=== PATIENT | female | born 1960 | race Two or more races ===

== ENCOUNTER 2017-02-20 10:03 | Emergency (ER) | payer SELFPAY ==
[~2017-02-20] VITALS: Ht 162.6 cm; Wt 57.2 kg
[2017-02-20] MEDS ORDERED: HYDROCODONE/APAP 5/325MG 1 EACH TABLET ONE ×2 (10:19→11:12)
[2017-02-20] MEDS ORDERED: HYDROCODONE/APAP 5/325MG 1 EACH TABLET PO ONE ×2 (10:30→11:30)
[2017-02-20 12:46] VITALS: BP 130/69
== END 2017-02-20 12:47 | disposition home or self-care (01) ==
LOC: ER 10:09
DX: M25.561 Pain in right knee (principal); W01.0XXA Fall on same level from slipping, tripping and stumbling without subsequent striking against object, initial encounter; Y92.512 Supermarket, store or market as the place of occurrence of the external cause; Y93.89 Activity, other specified; Y99.8 Other external cause status
CPT/HCPCS: 72040; 73110 ×2; 73562 ×2; 73700; 99284; A4606; Z7610

== ENCOUNTER 2025-08-05 05:56 | Inpatient (IN) | payer MEDICAID, OTHER ==
[2025-08-05] VITALS (33 sets, daily range): BP systolic 94–183; BP diastolic 54–94; TEMP 97–98.8; O2SAT 99–100
[~2025-08-05] VITALS: Ht 152.4 cm; Wt 44.0 kg
[2025-08-05] MEDS ORDERED: NALOXONE PREFILLED SYRINGE 2 MG/2 ML SYRINGE ONE (05:59)
[2025-08-05] MEDS ORDERED: ROCURONIUM BROMIDE 50 MG/5 ML IV ONE (06:00)
[2025-08-05] MEDS ORDERED: ETOMIDATE 2 MG/ML VIAL IV ONE (06:00)
[2025-08-05 06:27] LABS: PLATELET COUNT (AUTO) 121 K/uL (150-450); RED BLOOD CELL COUNT(AUTO) 2.73 MIL/uL (4.0-5.2); RED CELL DISTRIBUTION WIDTH 17.8 % (11.5-15.0); WHITE BLOOD COUNT (AUTO) 4.6 K/uL (4.3-11.0)
[2025-08-05 06:32] LABS: ABG BASE EXCESS 2.3 mmol/L (-2.0-3.0); ABG OXYGEN SATURATION 99.7 % (94.0-98.0); ABG PCO2 60.4 mmHg (32.0-45.0); ABG PH 7.304 (7.350-7.450); ABG PO2 483.5 mmHg (83.0-108.0); ABG TOTAL HEMOGLOBIN 8.8 G/dL (12.0-16.0); PEEP,BG 5 cm H2O; SET RATE, BG 28.0; SITE, ABG LEFT RADIAL; VT, ABG 300 mL
[2025-08-05 06:34] LABS: APPEARANCE,URINE CLEAR (CLEAR); BLOOD, URINE 1+ Ery/uL (NEGATIVE); LEUKOCYTE ESTERASE ,URINE NEGATIVE (NEGATIVE); NITRITE, URINE NEGATIVE (NEGATIVE); UGLUCOSE NEGATIVE (NEGATIVE)
[2025-08-05 06:37] LABS: CALCIUM, SERUM 7.8 mg/dL (8.5-10.1); CREATININE 4.4 mg/dL (0.6-1.3); SODIUM SERUM 137 mmol/L (136-145); UREA NITROGEN, BLOOD 36 mg/dL (7-18)
[2025-08-05 06:40] LABS: ADD URINE CULTURE NO; SQUAMOUS EPITHELIAL CELL,UR 0-2 /HPF (None Seen)
[2025-08-05 06:40] LABS: INR 1.62 (0.91-1.10)
[2025-08-05 06:43] LABS: ALCOHOL, BLOOD < 3 mg/dL (0-10); ASPARTATE AMINOTRANSFERASE 32 U/L (15-37); TOTAL PROTEIN, SERUM 6.8 g/dL (6.4-8.2)
[2025-08-05 06:45] LABS: SERUM AMMONIA 37 umol/L (11-32)
[2025-08-05 06:46] LABS: LACTIC ACID 1.0 mmol/L (0.4-2.0)
[2025-08-05 06:52] LABS: AMPHETAMINE, URINE NEGATIVE (NEGATIVE); BARBITURATE, URINE NEGATIVE (NEGATIVE); BENZODIAZEPINE, URINE NEGATIVE (NEGATIVE); CANNABINOID, URINE NEGATIVE (NEGATIVE); COCCAINE, URINE NEGATIVE (NEGATIVE); OPIATE, URINE NEGATIVE (NEGATIVE)
[2025-08-05] MEDS ORDERED: PIPERACI/TAZO 3.375GM/D5W 50ML PB IV ONE (08:02)
[2025-08-05] MEDS: PIPERACILLIN /TAZOBACTAM 3.375 G in IV D5W 50 ML IV ONE (08:25)
[2025-08-05] MEDS ORDERED: DOSING PER PHARMACY-CEFEPIME IVPB XX PRN (08:30)
[2025-08-05] MEDS ORDERED: IPRATROPIUM NEB FS 0.5 MG/2.5 ML AMPUL.NEB NEB PRN (08:30)
[2025-08-05] MEDS ORDERED: Z GUARD REMEDY 4 OZ OINT TP PRN (08:30)
[2025-08-05] MEDS ORDERED: ONDANSETRON HCL/PF 4 MG/2 ML VIAL IVP PRN (08:30)
[2025-08-05] MEDS ORDERED: ALBUTEROL FS 2.5 MG/3 ML VIAL.NEB NEB PRN (08:30)
[2025-08-05] MEDS ORDERED: DOSING PER PHARMACY-ZOSYN IV 1 EA EA XX PRN (08:30)
[2025-08-05] MEDS: PANTOPRAZOLE 40 MG VIAL IV SCH (09:52)
[2025-08-05] MEDS: IV D5 LR 1,000 ML IV PRN (10:03)
[2025-08-05] MEDS: PROPOFOL 100 ML IV PRN (10:03)
[2025-08-05] MEDS ORDERED: ATOR40TA PO (10:32)
[2025-08-05] MEDS ORDERED: FURO80TA3 PO (10:32)
[2025-08-05] MEDS ORDERED: ASPI-1420 PO (10:32)
[2025-08-05] MEDS ORDERED: LISI10TA29 PO (10:32)
[2025-08-05] MEDS ORDERED: HYDR-4076 PO (10:32)
[2025-08-05] MEDS ORDERED: METO25TA6 PO (10:32)
[2025-08-05] MEDS: PIPERACILLIN /TAZOBACTAM 3.375 G in IV D5W 100 ML IV SCH (13:12)
[2025-08-06] VITALS (55 sets, daily range): BP systolic 52–199; BP diastolic 41–88; TEMP 97.4–100.6; O2SAT 97–100
[2025-08-06] MEDS: NOREPINEPHRINE 8 MG in IV NS 0.9% 242 ML IV PRN (02:03)
[2025-08-06 05:20] LABS: ABG BASE EXCESS 7.0 mmol/L (-2.0-3.0); ABG OXYGEN SATURATION 98.3 % (94.0-98.0); ABG PCO2 28.4 mmHg (32.0-45.0); ABG PH 7.619 (7.350-7.450); ABG PO2 103.2 mmHg (83.0-108.0); ABG TOTAL HEMOGLOBIN 8.0 G/dL (12.0-16.0); FRACTIONATED INSPIRED OXYGEN 40.0 %; PEEP,BG 5 cm H2O; SET RATE, BG 24.0; SITE, ABG RIGHT RADIAL; VT, ABG 350 mL
[2025-08-06 05:49] LABS: CALCIUM, SERUM 7.8 mg/dL (8.5-10.1); CREATININE 3.0 mg/dL (0.6-1.3); PHOSPHORUS 1.1 mg/dL (2.5-4.9); SODIUM SERUM 142 mmol/L (136-145); UREA NITROGEN, BLOOD 20 mg/dL (7-18)
[2025-08-06 05:51] LABS: PLATELET COUNT (AUTO) 122 K/uL (150-450); RED BLOOD CELL COUNT(AUTO) 2.47 MIL/uL (4.0-5.2); RED CELL DISTRIBUTION WIDTH 16.4 % (11.5-15.0); WHITE BLOOD COUNT (AUTO) 8.1 K/uL (4.3-11.0)
[2025-08-06 05:53] LABS: LDL 31 mg/dL (0-99)
[2025-08-06] MEDS ORDERED: ASPIRIN EC 81 MG TABLET.DR PO SCH (09:30)
[2025-08-06] MEDS ORDERED: HEPARIN INFUSION/D5W 500 ML IV PRN (09:30)
[2025-08-06] MEDS: ATORVASTATIN 40 MG TABLET PO SCH (10:24)
[2025-08-06] MEDS: CLOPIDOGREL BISULFATE 75 MG TABLET PO SCH (10:24)
[2025-08-06] MEDS: POTASSIUM CHLORIDE 20 MEQ POWDER PACKET GT SCH (10:24)
[2025-08-06] MEDS: ASPIRIN 81 MG TAB.CHEW PO SCH (10:26)
[2025-08-06 11:39] LABS: INR 1.87 (0.91-1.10)
[2025-08-06] MEDS: NEPRO 1,000 ML BOTTLE GT PRN (14:44)
[2025-08-06] MEDS: Sodium Phosphate 15 MMOL in IV NS 0.9% 245 ML IV SCH (15:04)
[2025-08-06] MEDS: PIPERACILLIN /TAZOBACTAM 2.25 G in IV D5W 50 ML IV SCH (15:04)
[2025-08-07] VITALS (80 sets, daily range): BP systolic 85–146; BP diastolic 52–69; TEMP 97.5–98.4; O2SAT 99–100
[2025-08-07 05:38] LABS: PLATELET COUNT (AUTO) 134 K/uL (150-450); RED BLOOD CELL COUNT(AUTO) 2.60 MIL/uL (4.0-5.2); RED CELL DISTRIBUTION WIDTH 17.1 % (11.5-15.0); WHITE BLOOD COUNT (AUTO) 9.4 K/uL (4.3-11.0)
[2025-08-07 05:55] LABS: ASPARTATE AMINOTRANSFERASE 116.0 U/L (15-37); CALCIUM, SERUM 7.2 mg/dL (8.5-10.1); CREATININE 1.9 mg/dL (0.6-1.3); PHOSPHORUS 2.7 mg/dL (2.5-4.9); SODIUM SERUM 142.0 mmol/L (136-145); TOTAL PROTEIN, SERUM 5.7 g/dL (6.4-8.2); UREA NITROGEN, BLOOD 14.0 mg/dL (7-18)
[2025-08-07] MEDS ORDERED: POTASSIUM CHLORIDE 20 MEQ POWDER PACKET GT SCH (07:00)
[2025-08-07] MEDS: PANTOPRAZOLE 40 MG/PACK PACK GT SCH (09:26)
[2025-08-07 09:55] LABS: ABG BASE EXCESS 5.9 mmol/L (-2.0-3.0); ABG OXYGEN SATURATION 98.5 % (94.0-98.0); ABG PCO2 56.3 mmHg (32.0-45.0); ABG PH 7.373 (7.350-7.450); ABG PO2 115.8 mmHg (83.0-108.0); ABG TOTAL HEMOGLOBIN 8.3 G/dL (12.0-16.0); FRACTIONATED INSPIRED OXYGEN 40.0 %; PEEP,BG 5 cm H2O; SET RATE, BG 4.0; SITE, ABG RIGHT BRACHIAL; VT, ABG 300 mL
[2025-08-07] MEDS: POTASSIUM CHLORIDE 20 MEQ POWDER PACKET GT ONE (12:16)
[2025-08-08] VITALS (100 sets, daily range): BP systolic 66–174; BP diastolic 43–88; TEMP 97.5–98.2; O2SAT 95–100
[2025-08-08 04:34] LABS: PLATELET COUNT (AUTO) 120 K/uL (150-450); RED BLOOD CELL COUNT(AUTO) 2.38 MIL/uL (4.0-5.2); RED CELL DISTRIBUTION WIDTH 17.1 % (11.5-15.0); WHITE BLOOD COUNT (AUTO) 7.7 K/uL (4.3-11.0)
[2025-08-08 04:35] LABS: CALCIUM, SERUM 7.3 mg/dL (8.5-10.1); CREATININE 2.5 mg/dL (0.6-1.3); SODIUM SERUM 138.0 mmol/L (136-145); UREA NITROGEN, BLOOD 22.0 mg/dL (7-18)
[2025-08-08] MEDS: THERAHONEY GEL 1.5 OZ TUBE TP SCH (08:15)
[2025-08-08] MEDS: MIDODRINE HCL (5MG) 5 MG TABLET PO ONE ×2 (10:00→10:35)
[2025-08-08 10:16] LABS: ABG BASE EXCESS 4.9 mmol/L (-2.0-3.0); ABG OXYGEN SATURATION 97.2 % (94.0-98.0); ABG PCO2 53.1 mmHg (32.0-45.0); ABG PH 7.381 (7.350-7.450); ABG PO2 98.2 mmHg (83.0-108.0); ABG TOTAL HEMOGLOBIN 8.4 G/dL (12.0-16.0); FRACTIONATED INSPIRED OXYGEN 30.0 %; SET RATE, BG 4.0; VT, ABG 300 mL
[2025-08-08] MEDS: ALBUMIN 25% 25 GM in PREMIX 1 EA IV PRN (14:54)
[2025-08-09] VITALS (68 sets, daily range): BP systolic 97–194; BP diastolic 54–92; TEMP 96.7–101; O2SAT 97–100
[2025-08-09 03:27] LABS: PLATELET COUNT (AUTO) 120 K/uL (150-450); RED BLOOD CELL COUNT(AUTO) 2.27 MIL/uL (4.0-5.2); RED CELL DISTRIBUTION WIDTH 17.3 % (11.5-15.0); WHITE BLOOD COUNT (AUTO) 7.6 K/uL (4.3-11.0)
[2025-08-09 03:47] LABS: CALCIUM, SERUM 7.8 mg/dL (8.5-10.1); CREATININE 1.7 mg/dL (0.6-1.3); SODIUM SERUM 143.0 mmol/L (136-145); UREA NITROGEN, BLOOD 14.0 mg/dL (7-18)
[2025-08-09 03:53] LABS: PHOSPHORUS 1.8 mg/dL (2.5-4.9)
[2025-08-09 04:01] LABS: EOSINOPHILS % (MANUAL) 1 % (0-4); LYMPHOCYTES % (MANUAL) 6 % (16-48); MONOCYTES % (MANUAL) 4 % (0-11.0); NEUTROPHILS % (MANUAL) 89 (42-76); PLATELET ESTIMATE DECREASED
[2025-08-09 05:56] LABS: ABG BASE EXCESS 8.8 mmol/L (-2.0-3.0); ABG OXYGEN SATURATION 96.7 % (94.0-98.0); ABG PCO2 53.9 mmHg (32.0-45.0); ABG PH 7.422 (7.350-7.450); ABG PO2 87.7 mmHg (83.0-108.0); ABG TOTAL HEMOGLOBIN 8.0 G/dL (12.0-16.0); FRACTIONATED INSPIRED OXYGEN 30.0 %; SET RATE, BG 12.0; SITE, ABG RIGHT RADIAL; VT, ABG 300 mL
[2025-08-09 05:56] LABS: OCCULT BLOOD STOOL POSITIVE (NEGATIVE)
[2025-08-09] MEDS: PANTOPRAZOLE 40 MG VIAL IV SCH (08:07)
[2025-08-09] MEDS ORDERED: MIDODRINE HCL (5MG) 5 MG TABLET GT PRN (08:30)
[2025-08-09] MEDS: POTASSIUM CL. PREMIX PERIPHER. 50 ML IV SCH (11:13)
[2025-08-09] MEDS: MIDODRINE HCL (5MG) 5 MG TABLET GT SCH (13:47)
[2025-08-09] MEDS: Sodium Phosphate 15 MMOL in IV NS 0.9% 245 ML IV SCH (18:10)
[2025-08-09 18:53] LABS: PLATELET COUNT (AUTO) 157 K/uL (150-450); RED BLOOD CELL COUNT(AUTO) 2.76 MIL/uL (4.0-5.2); RED CELL DISTRIBUTION WIDTH 17.4 % (11.5-15.0); WHITE BLOOD COUNT (AUTO) 9.4 K/uL (4.3-11.0)
[2025-08-09 19:05] LABS: PHOSPHORUS 2.1 mg/dL (2.5-4.9)
[2025-08-09] MEDS: ACETAMINOPHEN 650 MG/SUPP.RECT RC PRN (20:37)
[2025-08-09] MEDS ORDERED: SENNOSIDES 8.6 MG TABLET PO SCH (22:00)
[2025-08-10] VITALS (32 sets, daily range): BP systolic 114–164; BP diastolic 56–95; TEMP 97.8–100; O2SAT 92–100
[2025-08-10 05:15] LABS: PLATELET COUNT (AUTO) 161 K/uL (150-450); RED BLOOD CELL COUNT(AUTO) 2.75 MIL/uL (4.0-5.2); RED CELL DISTRIBUTION WIDTH 17.4 % (11.5-15.0); WHITE BLOOD COUNT (AUTO) 9.2 K/uL (4.3-11.0)
[2025-08-10 05:22] LABS: INR 1.31 (0.91-1.10)
[2025-08-10 05:26] LABS: CALCIUM, SERUM 7.6 mg/dL (8.5-10.1); CREATININE 2.3 mg/dL (0.6-1.3); PHOSPHORUS 3.3 mg/dL (2.5-4.9); SODIUM SERUM 141.0 mmol/L (136-145); UREA NITROGEN, BLOOD 26.0 mg/dL (7-18)
[2025-08-10 11:08] LABS: ABG BASE EXCESS 1.4 mmol/L (-2.0-3.0); ABG OXYGEN SATURATION 94.0 % (94.0-98.0); ABG PCO2 49.4 mmHg (32.0-45.0); ABG PH 7.359 (7.350-7.450); ABG PO2 71.8 mmHg (83.0-108.0); ABG TOTAL HEMOGLOBIN 8.4 G/dL (12.0-16.0); FRACTIONATED INSPIRED OXYGEN 30.0 %; PEEP,BG 5 cm H2O; SET RATE, BG 4.0; SITE, ABG RIGHT RADIAL; VT, ABG 300 mL
[2025-08-10] MEDS: PANTOPRAZOLE 40 MG/PACK PACK GT SCH (22:04)
[2025-08-11] VITALS (24 sets, daily range): BP systolic 120–158; BP diastolic 58–89; TEMP 98.1–98.8; O2SAT 92–99
[2025-08-11 04:01] LABS: PLATELET COUNT (AUTO) 191 K/uL (150-450); RED BLOOD CELL COUNT(AUTO) 2.62 MIL/uL (4.0-5.2); RED CELL DISTRIBUTION WIDTH 16.8 % (11.5-15.0); WHITE BLOOD COUNT (AUTO) 9.2 K/uL (4.3-11.0)
[2025-08-11 04:11] LABS: CALCIUM, SERUM 7.8 mg/dL (8.5-10.1); CREATININE 1.7 mg/dL (0.6-1.3); PHOSPHORUS 1.6 mg/dL (2.5-4.9); SODIUM SERUM 142.0 mmol/L (136-145); UREA NITROGEN, BLOOD 18.0 mg/dL (7-18)
[2025-08-11] MEDS: IV NS 0.9% 250 ML IV PRN (07:00)
[2025-08-11 09:18] LABS: ABG BASE EXCESS -1.0 mmol/L (-2.0-3.0); ABG OXYGEN SATURATION 93.3 % (94.0-98.0); ABG PCO2 55.3 mmHg (32.0-45.0); ABG PH 7.289 (7.350-7.450); ABG PO2 73.4 mmHg (83.0-108.0); ABG TOTAL HEMOGLOBIN 9.1 G/dL (12.0-16.0); FRACTIONATED INSPIRED OXYGEN 30.0 %; PEEP,BG 5 cm H2O; SET RATE, BG 4.0; SITE, ABG RIGHT RADIAL; VT, ABG 300 mL
[2025-08-11] MEDS: K PHOS NEUTRAL 250 MG TABLET PO ONE (10:07)
[2025-08-12] VITALS (33 sets, daily range): BP systolic 138–171; BP diastolic 68–82; TEMP 97.8–99; O2SAT 96–100
[2025-08-12 04:53] LABS: PLATELET COUNT (AUTO) 221 K/uL (150-450); RED BLOOD CELL COUNT(AUTO) 2.54 MIL/uL (4.0-5.2); RED CELL DISTRIBUTION WIDTH 16.5 % (11.5-15.0); WHITE BLOOD COUNT (AUTO) 11.7 K/uL (4.3-11.0)
[2025-08-12 04:55] LABS: ASPARTATE AMINOTRANSFERASE 36 U/L (15-37); CALCIUM, SERUM 7.8 mg/dL (8.5-10.1); CREATININE 2.5 mg/dL (0.6-1.3); PHOSPHORUS 2.9 mg/dL (2.5-4.9); SODIUM SERUM 140 mmol/L (136-145); TOTAL PROTEIN, SERUM 6.3 g/dL (6.4-8.2); UREA NITROGEN, BLOOD 33 mg/dL (7-18)
[2025-08-12] MEDS: EPOETIN ALFA (10,000 UNIT) 10,000 UNIT/ML VIAL SQ SCH (15:49)
[2025-08-13] VITALS (37 sets, daily range): BP systolic 129–168; BP diastolic 70–90; TEMP 97.6–98.3; O2SAT 96–100
[2025-08-13 05:41] LABS: ASPARTATE AMINOTRANSFERASE 40.0 U/L (15-37); CALCIUM, SERUM 7.9 mg/dL (8.5-10.1); CREATININE 1.6 mg/dL (0.6-1.3); PHOSPHORUS 1.8 mg/dL (2.5-4.9); SODIUM SERUM 142.0 mmol/L (136-145); TOTAL PROTEIN, SERUM 6.6 g/dL (6.4-8.2); UREA NITROGEN, BLOOD 22.0 mg/dL (7-18)
[2025-08-13 08:30] LABS: PLATELET COUNT (AUTO) 232 K/uL (150-450); RED BLOOD CELL COUNT(AUTO) 2.19 MIL/uL (4.0-5.2); RED CELL DISTRIBUTION WIDTH 16.8 % (11.5-15.0); WHITE BLOOD COUNT (AUTO) 8.2 K/uL (4.3-11.0)
[2025-08-13] MEDS: PANTOPRAZOLE 40 MG VIAL IV SCH (08:30)
[2025-08-13] MEDS ORDERED: MORPHINE SULFATE INJ 2 MG/ML DISP.SYRIN IV PRN (09:00)
[2025-08-13 09:55] LABS: OCCULT BLOOD STOOL POSITIVE (NEGATIVE)
[2025-08-13 10:21] LABS: LYMPHOCYTES % (MANUAL) 1 % (16-48); MONOCYTES % (MANUAL) 4 % (0-11.0); NEUTROPHILS % (MANUAL) 95 (42-76); PLATELET ESTIMATE ADEQUATE
[2025-08-13] MEDS: Sodium Phosphate 15 MMOL in IV NS 0.9% 245 ML IV SCH (10:50)
[2025-08-13 19:56] LABS: PLATELET COUNT (AUTO) 201 K/uL (150-450); RED BLOOD CELL COUNT(AUTO) 2.04 MIL/uL (4.0-5.2); RED CELL DISTRIBUTION WIDTH 15.8 % (11.5-15.0); WHITE BLOOD COUNT (AUTO) 9.0 K/uL (4.3-11.0)
[2025-08-13 20:52] LABS: LYMPHOCYTES % (MANUAL) 8 % (16-48); MONOCYTES % (MANUAL) 13 % (0-11.0); NEUTROPHILS % (MANUAL) 79 (42-76); PLATELET ESTIMATE ADEQUATE
[2025-08-13] MEDS: PEG 3350/NA SULF,BICARB,CL/KCL 4,000 ML BOTTLE NG ONE (22:09)
[2025-08-14] VITALS (31 sets, daily range): BP systolic 90–155; BP diastolic 44–79; TEMP 97.5–101.9; O2SAT 94–100
[2025-08-14 05:10] LABS: PLATELET COUNT (AUTO) 185 K/uL (150-450); RED BLOOD CELL COUNT(AUTO) 2.78 MIL/uL (4.0-5.2); RED CELL DISTRIBUTION WIDTH 14.9 % (11.5-15.0); WHITE BLOOD COUNT (AUTO) 8.8 K/uL (4.3-11.0)
[2025-08-14 05:27] LABS: ASPARTATE AMINOTRANSFERASE 31.0 U/L (15-37); CALCIUM, SERUM 7.5 mg/dL (8.5-10.1); CREATININE 2.3 mg/dL (0.6-1.3); PHOSPHORUS 4.5 mg/dL (2.5-4.9); SODIUM SERUM 136.0 mmol/L (136-145); TOTAL PROTEIN, SERUM 5.5 g/dL (6.4-8.2); UREA NITROGEN, BLOOD 40.0 mg/dL (7-18)
[2025-08-14] MEDS ORDERED: IOHEXOL-350 100 ML VIAL IV ONE (11:09)
[2025-08-14] MEDS ORDERED: IV NS 0.9% 250 ML IV ONE (11:09)
[2025-08-14 11:13] LABS: PLATELET COUNT (AUTO) 192 K/uL (150-450); RED BLOOD CELL COUNT(AUTO) 2.58 MIL/uL (4.0-5.2); RED CELL DISTRIBUTION WIDTH 15.1 % (11.5-15.0); WHITE BLOOD COUNT (AUTO) 8.7 K/uL (4.3-11.0)
[2025-08-14] MEDS: PANTOPRAZOLE 40 MG VIAL IV SCH (16:37)
[2025-08-14] MEDS ORDERED: PANTOPRAZOLE 40 MG TABLET.DR PO SCH (17:00)
[2025-08-14 17:17] LABS: PLATELET COUNT (AUTO) 215 K/uL (150-450); RED BLOOD CELL COUNT(AUTO) 2.27 MIL/uL (4.0-5.2); RED CELL DISTRIBUTION WIDTH 15.3 % (11.5-15.0); WHITE BLOOD COUNT (AUTO) 10.2 K/uL (4.3-11.0)
[2025-08-14 18:30] LABS: BAND % (MANUAL) 1 % (0.0-5.0); EOSINOPHILS % (MANUAL) 2 % (0-4); LYMPHOCYTES % (MANUAL) 8 % (16-48); METAMYELOCYTES % 1 % (0-0); MONOCYTES % (MANUAL) 2 % (0-11.0); NEUTROPHILS % (MANUAL) 86 (42-76); PLATELET ESTIMATE ADEQUATE
[2025-08-14] MEDS: ACETAMINOPHEN 650 MG/20.3 ML UDC NG PRN (20:24)
[2025-08-14 23:15] LABS: PLATELET COUNT (AUTO) 210 K/uL (150-450); RED CELL DISTRIBUTION WIDTH 15.3 % (11.5-15.0); WHITE BLOOD COUNT (AUTO) 12.0 K/uL (4.3-11.0)
[2025-08-14 23:20] LABS: RED BLOOD CELL COUNT(AUTO) 1.85 MIL/uL (4.0-5.2)
[2025-08-15] VITALS (42 sets, daily range): BP systolic 93–158; BP diastolic 45–80; TEMP 96.9–98.4; O2SAT 99–100
[2025-08-15 04:00] LABS: EOSINOPHILS % (MANUAL) 2 % (0-4); LYMPHOCYTES % (MANUAL) 15 % (16-48); MONOCYTES % (MANUAL) 8 % (0-11.0); NEUTROPHILS % (MANUAL) 75 (42-76)
[2025-08-15 04:01] LABS: PLATELET ESTIMATE ADEQUATE
[2025-08-15 08:22] LABS: PLATELET COUNT (AUTO) 199 K/uL (150-450); RED BLOOD CELL COUNT(AUTO) 2.83 MIL/uL (4.0-5.2); RED CELL DISTRIBUTION WIDTH 15.0 % (11.5-15.0); WHITE BLOOD COUNT (AUTO) 10.7 K/uL (4.3-11.0)
== END 2025-08-15 14:13 | disposition short-term general hospital (02) | DRG 130 ==
LOC: ER 05:59 → ICU 08:31
PROVIDERS: ADMIT Nurse Practitioner Acute Care; ATTEND Internal Medicine
PROC: 5A1955Z Respiratory Ventilation, Greater than 96 Consecutive Hours (ICD-10-PCS; principal; 2025-08-05)
PROC: 0BH18EZ Insertion of Endotracheal Airway into Trachea, Via Natural or Artificial Opening Endoscopic (ICD-10-PCS; 2025-08-05)
PROC: 5A1D70Z Performance of Urinary Filtration, Intermittent, Less than 6 Hours Per Day (ICD-10-PCS; 2025-08-05)
PROC: 06HM33Z Insertion of Infusion Device into Right Femoral Vein, Percutaneous Approach (ICD-10-PCS; 2025-08-05)
PROC: 30233N1 Transfusion of Nonautologous Red Blood Cells into Peripheral Vein, Percutaneous Approach (ICD-10-PCS; 2025-08-09)
PROC: 0DJ08ZZ Inspection of Upper Intestinal Tract, Via Natural or Artificial Opening Endoscopic (ICD-10-PCS; 2025-08-13)
PROC: 0DJD8ZZ Inspection of Lower Intestinal Tract, Via Natural or Artificial Opening Endoscopic (ICD-10-PCS; 2025-08-14)
DX: J96.01 Acute respiratory failure with hypoxia (principal); J69.0 Pneumonitis due to inhalation of food and vomit; I13.2 Hypertensive heart and chronic kidney disease with heart failure and with stage 5 chronic kidney disease, or end stage renal disease; L89.153 Pressure ulcer of sacral region, stage 3; E43 Unspecified severe protein-calorie malnutrition; R64 Cachexia; I50.33 Acute on chronic diastolic (congestive) heart failure; E83.39 Other disorders of phosphorus metabolism; D62 Acute posthemorrhagic anemia; D69.6 Thrombocytopenia, unspecified; N18.6 End stage renal disease; Z99.2 Dependence on renal dialysis; J96.02 Acute respiratory failure with hypercapnia; L89.323 Pressure ulcer of left buttock, stage 3; K92.2 Gastrointestinal hemorrhage, unspecified; D63.8 Anemia in other chronic diseases classified elsewhere; I27.20 Pulmonary hypertension, unspecified; I35.1 Nonrheumatic aortic (valve) insufficiency; K25.9 Gastric ulcer, unspecified as acute or chronic, without hemorrhage or perforation; L89.890 Pressure ulcer of other site, unstageable; E88.09 Other disorders of plasma-protein metabolism, not elsewhere classified; I21.A1 Myocardial infarction type 2; E78.5 Hyperlipidemia, unspecified; I25.10 Atherosclerotic heart disease of native coronary artery without angina pectoris; I25.2 Old myocardial infarction; Z20.822 Contact with and (suspected) exposure to COVID-19; M62.50 Muscle wasting and atrophy, not elsewhere classified, unspecified site; E83.89 Other disorders of mineral metabolism; R13.10 Dysphagia, unspecified; R62.7 Adult failure to thrive; Z68.1 Body mass index [BMI] 19.9 or less, adult; L89.316 Pressure-induced deep tissue damage of right buttock; J32.9 Chronic sinusitis, unspecified; L89.326 Pressure-induced deep tissue damage of left buttock; I27.23 Pulmonary hypertension due to lung diseases and hypoxia; Z95.5 Presence of coronary angioplasty implant and graft; E87.6 Hypokalemia
CPT/HCPCS: 31720; 36415; 36600; 70450-TC; 71045-TC; 80048-TC; 80053-TC; 80061-TC; 80076-TC; 81001; 82140-TC; 82272-TC; 82803-TC; 82962-TC; 83605-TC; 83735-TC; 83880; 84100-TC; 84443-TC; 84484-TC; 85025-TC; 85027-TC; 85610-TC; 85730-TC; 86707; 86850-TC; 87040-TC; 87081-TC; 87350; 90935-TC; 93307-TC; 94003-TC; 94760-TC; 94799-TC; 99082-TC; A4216; A4223; A6253; A6403; A9563; G0378; G0480; J0885; J2312; J2470; J2543; J2704; J3480; J3490; J7030; J7050; J7060; P9016; P9047; Q9967